=== PATIENT | male | born 1995 | race Caucasian/White ===

== ENCOUNTER 2018-07-04 17:17 | Emergency (ER) | payer MEDICAID ==
[~2018-07-04] VITALS: Ht 185.4 cm; Wt 91.6 kg
[2018-07-04 19:31] VITALS: BP 140/98
== END 2018-07-04 19:31 | disposition home or self-care (01) ==
LOC: ED 17:17
DX: G89.29 Other chronic pain (principal); M54.5 Low back pain

== ENCOUNTER 2018-11-18 19:04 | Emergency (ER) | payer SELFPAY ==
[~2018-11-18] VITALS: Ht 185.4 cm; Wt 90.3 kg
[2018-11-18 19:35] VITALS: Ht 185.4 cm; Wt 90.3 kg
[2018-11-18 21:27] VITALS: BP 115/69
== END 2018-11-18 21:27 | disposition home or self-care (01) ==
LOC: ED 19:04
DX: S00.11XA Contusion of right eyelid and periocular area, initial encounter (principal); X58.XXXA Exposure to other specified factors, initial encounter; Y93.89 Activity, other specified; Y92.89 Other specified places as the place of occurrence of the external cause; Y99.8 Other external cause status